=== PATIENT | female | born 1960 | race Caucasian/White ===

== ENCOUNTER 2025-09-18 13:17 | Outpatient (OUT) | payer MEDICARE, SELFPAY ==
--- NOTE | 2025-09-18 13:36 | XR_ITS ---
[facility] [place] [id number] Patient Name: YUKO QUESADA MRN: [id number] date: 1960 Sex: F Assigned Patient Location: [facility] Current Patient Location: [facility] Accession/Order Number: [id number] Exam Date: 09/18/2025 13:45 Report Date: 09/18/2025 16:33 At the request of: KEESHA ESPAÑA DPBienvenido Procedure: XR foot AVIVA min 3V XR foot AVIVA min 3V 09/18/2025 1:51 PM SIGNS AND SYMPTOMS: Hallux Valgus, chronic bilateral foot pain PROTOCOL: 6 views of the bilateral feet COMPARISON: None FINDINGS: There is a hallux valgus deformity of the left great toe with moderate degenerative changes of the first metatarsophalangeal joint. Hardware is noted in the heads of the first and second metatarsals of the left foot. There is a remote posttraumatic deformity of the right fifth metatarsal. There is plantar and Achilles surface calcaneal spurring bilaterally. Pes planus deformity is noted of the arch of the foot bilaterally. XR/XR foot AVIVA min 3V IMPRESSION: Moderate degenerative changes are noted in the first metatarsophalangeal joint of the left foot with a hallux valgus deformity. Postoperative changes are noted in the head of the first and second metatarsal of the left foot. There is a remote posttraumatic deformity of the distal aspect of the right fifth metatarsal suspicious for a previously healed fracture. Pes planus deformity is noted at the arch of the foot bilaterally. Impression dictated by: Catracho Toro M.D. 09/18/2025 4:33 PM Dictation Location: [place] [id number] Electronically authenticated by: [id number] Y Date: 09/18/2025 16:33
== END 2025-09-18 13:18 | disposition home or self-care (01) ==
LOC: RAD 13:26
PROVIDERS: PCP Student in an Organized Health Care Education/Training Program; Visit Provider Podiatrist Foot & Ankle Surgery
DX: M20.12 Hallux valgus (acquired), left foot (principal); M20.11 Hallux valgus (acquired), right foot; Z98.890 Other specified postprocedural states; M21.42 Flat foot [pes planus] (acquired), left foot; M21.41 Flat foot [pes planus] (acquired), right foot
CPT/HCPCS: 73630